=== PATIENT | male | born 1945 | race Caucasian/White ===

== ENCOUNTER → 2020-12-22 | Outpatient (CLI) | payer OTHER, SELFPAY ==
[~2020-12-22] MED LIST: ALLOPURINOL300 MG PO; ASPIRIN EC81 MG PO; CIPRO500 MG PO; COREG 3.125M3.125 MG PO; FISH OIL 1,0001 EACH PO; FLAGYL500 MG PO; GLUCOTROL 10 MG10 MG PO; HYDRALAZINE HCL25 MG PO; LASIX40 MG PO; LIPITOR TAB 2020 MG PO; NITROSTAT 0.40.4 MG SL; NORCO 5-325 TA1 EACH PO; NORCO 7.5-3251 EACH PO; NORVASC 5 MG TAB5 MG PO; NOVOLIN 70100 UNIT/1 SQ; PLAVIX 75 MG TA75 MG PO; PRINIVIL5 MG PO; PROTONIX40 MG PO; RANEXA500 MG PO; SYNTHROID50 MCG PO; VITAMIN B-121000 MCG PO
[2020-12-23 13:14] LABS: CREATININE, URINE 66.1 mg/dL (Not Estab.)
== END ==
LOC: LAB 10:19
PROVIDERS: Internal Medicine Nephrology
DX: N18.30 Chronic kidney disease, stage 3 unspecified (principal)
CPT/HCPCS: 36415; 80048; 82043; 82570

== ENCOUNTER → 2021-02-16 | Outpatient (CLI) | payer OTHER | LOC: LAB 09:54 | PROVIDERS: Internal Medicine Nephrology | DX: N18.31 Chronic kidney disease, stage 3a (principal) | CPT/HCPCS: 36415; 80048 ==

== ENCOUNTER → 2021-06-27 | Outpatient (CLI) | payer BC | LOC: LAB 10:36 | PROVIDERS: Internal Medicine Nephrology | DX: N18.31 Chronic kidney disease, stage 3a (principal) | CPT/HCPCS: 36415; 80048; 82043; 82570 ==

== ENCOUNTER → 2021-08-29 | Outpatient (CLI) | payer MEDICARE | LOC: KOH-I 14:37 | DX: R06.09 Other forms of dyspnea (principal); R09.89 Other specified symptoms and signs involving the circulatory and respiratory systems | CPT/HCPCS: 71250 ==

== ENCOUNTER → 2021-08-30 | Outpatient (CLI) | payer MEDICARE ==
[2021-08-30 11:20] LABS: HEMOGLOBIN 13.2 gm/dl (14.0-17.5); RED BLOOD COUNT 4.03 M/UL (4.20-5.50); WHITE BLOOD COUNT 8.7 K/UL (4.5-11.0)
[2021-08-31 10:14] LABS: CREATININE, URINE 78.5 mg/dL (Not Estab.)
== END ==
LOC: LAB 10:46
PROVIDERS: Internal Medicine
DX: Z51.81 Encounter for therapeutic drug level monitoring (principal); I13.0 Hypertensive heart and chronic kidney disease with heart failure and stage 1 through stage 4 chronic kidney disease, or unspecified chronic kidney disease; E11.22 Type 2 diabetes mellitus with diabetic chronic kidney disease; I50.9 Heart failure, unspecified; N18.31 Chronic kidney disease, stage 3a; D63.1 Anemia in chronic kidney disease; I25.10 Atherosclerotic heart disease of native coronary artery without angina pectoris; R53.83 Other fatigue; M10.9 Gout, unspecified; E78.5 Hyperlipidemia, unspecified; E55.9 Vitamin D deficiency, unspecified; Z79.899 Other long term (current) drug therapy
CPT/HCPCS: 36415; 80053; 80061; 82043; 82570; 82607; 82728; 82746; 83036; 83540; 83550; 84439; 84443; 84550; 85025

== ENCOUNTER → 2021-11-22 | Outpatient (CLI) | payer OTHER, MEDICARE | LOC: RT 15:03 | DX: R06.02 Shortness of breath (principal) | CPT/HCPCS: 36600; 82803 ==

== ENCOUNTER → 2021-11-22 | Outpatient (CLI) | payer OTHER, MEDICARE | LOC: HEART 5 09:46 | DX: J44.9 Chronic obstructive pulmonary disease, unspecified (principal) | CPT/HCPCS: 94060; 94729 ==

== ENCOUNTER → 2022-01-10 | Outpatient (CLI) | payer MEDICARE ==
[2022-01-11 10:12] LABS: CREATININE, URINE 33.1 mg/dL (Not Estab.)
== END ==
LOC: LAB 12:30
PROVIDERS: Internal Medicine Nephrology
DX: N18.31 Chronic kidney disease, stage 3a (principal)
CPT/HCPCS: 36415; 80048; 82043; 82570